=== PATIENT | female | born 1990 | race Two or more races ===

== ENCOUNTER 2017-10-18 09:21 | Emergency (ER) | payer OTHER, MEDICAID ==
[~2017-10-18] VITALS: Ht 154.9 cm; Wt 62.5 kg
[~2017-10-18 09:21] MED LIST: IBUP-1986 PO
[2017-10-18 09:39] VITALS: BP 122/74
[2017-10-18] MEDS ORDERED: ACET-3067 PO (11:00)
== END 2017-10-18 11:08 | disposition home or self-care (01) ==
LOC: ER 09:21
DX: M54.6 Pain in thoracic spine (principal); M25.511 Pain in right shoulder; G89.29 Other chronic pain; Z98.890 Other specified postprocedural states; Z91.040 Latex allergy status; V49.59XA Passenger injured in collision with other motor vehicles in traffic accident, initial encounter; Y93.89 Activity, other specified; Y92.413 State road as the place of occurrence of the external cause; Y99.9 Unspecified external cause status
CPT/HCPCS: 99283

== ENCOUNTER 2018-06-08 09:49 | Emergency (ER) | payer MEDICAID ==
[~2018-06-08] VITALS: Ht 154.9 cm; Wt 59.4 kg
[2018-06-08] MEDS ORDERED: ibuprofen tablet 400 MG TABLET PO ONE (11:00)
[2018-06-08] MEDS ORDERED: vancomycin/NS 1 GM ADD-VANTAGE 250 ML IV ONE (11:15)
[2018-06-08 11:34] LABS: BASOPHILS # (AUTO) 0.1 X10'3 (0-0.2); BASOPHILS % (AUTO) 0.6 % (0-1); EOSINOPHILS # (AUTO) 0.3 X10'3 (0-0.9); EOSINOPHILS % (AUTO) 2.4 % (0-6); HEMOGLOBIN 14.4 g/dl (12.0-16.0); LYMPHOCYTES # (AUTO) 1.8 X10'3 (1.1-4.8); MEAN CORPUSCULAR HEMOGLOBIN 31.6 PG (27.0-31.0); MEAN CORPUSCULAR HGB CONC 34.2 % (33.0-36.5); MEAN CORPUSCULAR VOLUME 92.6 FL (78-98); MEAN PLATELET VOLUME 7.7 FL (7.4-10.4); MONOCYTES # (AUTO) 0.7 X10'3 (0-0.9); MONOCYTES % (AUTO) 6.9 % (2-12); NEUTROPHILS # (AUTO) 7.8 X10'3 (1.8-7.7); NEUTROPHILS % (AUTO) 73.1 % (42-75); PLATELET COUNT 277 X10'3 (140-440); RED BLOOD COUNT 4.54 X10'6 (4.20-5.60); RED CELL DISTRIBUTION WIDTH 13.2 % (11.5-14.5); WHITE BLOOD COUNT 10.6 X10'3 (4.5-11.0)
[2018-06-08 11:43] LABS: ALANINE AMINOTRANSFERASE 48 U/L (12-78); ALBUMIN 3.6 G/DL (3.4-5.0); ALBUMIN/GLOBULIN RATIO 0.9 (1.1-1.5); ALKALINE PHOSPHATASE 96 IU/L (46-116); ANION GAP 9 (8-16); ASPARTATE AMINO TRANSFERASE 29 U/L (10-37); BILIRUBIN,TOTAL 0.3 MG/DL (0.1-1.0); BLOOD UREA NITROGEN 10 MG/DL (7-18); BUN/CREATININE RATIO 17.5 (6.6-38.0); CALCIUM 9.4 MG/DL (8.5-10.1); CHLORIDE 104 MMOL/L (99-107); CREATININE 0.57 MG/DL (0.40-0.90); GLUCOSE 89 MG/DL (70-104); POTASSIUM 3.9 MMOL/L (3.5-5.1); SODIUM 141 MMOL/L (135-145); TOTAL CARBON DIOXIDE 27.6 MMOL/L (24-32); TOTAL PROTEIN 7.5 G/DL (6.4-8.2); eGFR > 90 ML/MIN
[2018-06-08 11:45] LABS: PARTIAL THROMBOPLASTIN TIME 32 SECONDS (22-32); PROTHROMBIN TIME 10.6 SECONDS (9.0-12.0)
[2018-06-08] MEDS ORDERED: iohexol 300mg/ml 100ml inj. ONE (11:55)
[2018-06-08] MEDS ORDERED: normal saline 1000ML IV soln IVB ONE (13:00)
[2018-06-08 13:17] VITALS: BP 94/67
[2018-06-08 13:44] LABS: URINE HCG NEGATIVE (NEG)
[2018-06-08] MEDS ORDERED: LIDOcaine 1% w/EPI 1:100,000 30ml vial (MDV) IJ ONE (13:45)
[2018-06-08] MEDS ORDERED: LIDOcaine 1.5% w/epinephrine 1:200,000 5ml ampul IJ ONE (13:45)
[2018-06-08] MEDS ORDERED: SULF1TAB49 PO (13:46)
[2018-06-08] MEDS ORDERED: IBUP-1984 PO (13:46)
[2018-06-08] MEDS ORDERED: CEPH-572 PO (13:46)
[2018-06-08] MEDS ORDERED: LORazepam 2 mg/ml vial IV ONE (13:50)
[2018-06-08] MEDS ORDERED: HYDROcodone/acetaminophen 10/325mg tab PO ONE (13:50)
[2018-06-08 13:53] LABS: CLARITY,URINE CLEAR (Clear); COLOR,URINE YELLOW (Yellow); GLUCOSE, URINE NEGATIVE (Neg); KETONES,URINE NEGATIVE (Neg); LEUKOCYTE ESTERASE ,URINE NEGATIVE (Neg); NITRITES, URINE NEGATIVE (Neg); OCCULT BLOOD,URINE NEGATIVE (Neg); PROTEIN,URINE NEGATIVE (Neg); UROBILINOGEN,URINE 0.2 E.U/dL (0.2-1.0)
[2018-06-08 13:54] LABS: UA COLLECTION TYPE CLN CATCH MIDSTREAM
== END 2018-06-08 14:44 | disposition home or self-care (01) ==
LOC: ER 09:49 → EEVIPCON 09:49 → ER 14:44
DX: L02.413 Cutaneous abscess of right upper limb (principal); L03.113 Cellulitis of right upper limb; R00.0 Tachycardia, unspecified; Z91.040 Latex allergy status; Z98.890 Other specified postprocedural states
CPT/HCPCS: 10060; 36415; 73201; 80053; 81003; 81025; 83605; 85025; 85610; 85730; 87040; 96365; 96366; 96375; 99285; J2060; J3370; J3490; Q9967; J7030

== ENCOUNTER 2020-06-09 02:24 | Emergency (ER) | payer MEDICAID ==
[~2020-06-09] VITALS: Ht 154.9 cm; Wt 78.0 kg
[2020-06-09 02:30] VITALS: BP 135/57
--- NOTE | 2020-06-09 03:23 | NUR ---
Went to room patient, patient no longer in lobby,
--- NOTE | 2020-06-09 05:18 | NUR ---
attempted to call patient, voicemail box full.
== END 2020-06-09 05:20 | disposition left against medical advice (07) ==
LOC: ER 02:24
DX: M54.9 Dorsalgia, unspecified (principal); Z53.21 Procedure and treatment not carried out due to patient leaving prior to being seen by health care provider

== ENCOUNTER 2021-02-18 11:09 | Emergency (ER) | payer MEDICAID ==
[~2021-02-18] VITALS: Ht 154.9 cm; Wt 82.1 kg
[2021-02-18 11:28] VITALS: BP 145/84
[2021-02-18] MEDS ORDERED: piperacillin/tazo 3.375gm/50ml 50 ML IV ONE (13:40)
[2021-02-18] MEDS ORDERED: vancomycin/NS 1 GM ADD-VANTAGE 250 ML IV ONE (13:40)
[2021-02-18] MEDS ORDERED: normal saline 1000ML IV soln IV ONE (13:40)
--- NOTE | 2021-02-18 13:55 | NUR ---
attempt ekg on patient, refused. attempt xray, pt refused. at this time patient eloped from room.
--- NOTE | 2021-02-18 14:09 | NUR ---
At my arrival in room 16, pt elope. Pt was gone and refused tx. JEANETTE Small notified.
== END 2021-02-18 14:11 | disposition left against medical advice (07) ==
LOC: ER 11:09
DX: Z02.89 Encounter for other administrative examinations (principal); L02.413 Cutaneous abscess of right upper limb; M79.601 Pain in right arm; G89.29 Other chronic pain; F17.200 Nicotine dependence, unspecified, uncomplicated; F15.90 Other stimulant use, unspecified, uncomplicated; Z98.890 Other specified postprocedural states; Z91.040 Latex allergy status; Z79.899 Other long term (current) drug therapy
CPT/HCPCS: 99281

== ENCOUNTER 2021-09-23 00:47 | Emergency (ER) | payer MEDICAID ==
[~2021-09-23] VITALS: Ht 154.9 cm; Wt 75.0 kg
[2021-09-23 00:57] VITALS: BP 137/87
[2021-09-23] MEDS ORDERED: naproxen 500mg tablet PO ONE (04:35)
[2021-09-23] MEDS ORDERED: HYDROcodone/acetaminophen 10/325mg tab PO ONE (04:35)
[2021-09-23] MEDS ORDERED: NAPR-56 PO (04:37)
[2021-09-23] MEDS ORDERED: HYDR-3965 PO (04:37)
== END 2021-09-23 05:12 | disposition home or self-care (01) ==
LOC: ER 00:48
DX: S93.402A Sprain of unspecified ligament of left ankle, initial encounter (principal); G89.29 Other chronic pain; F15.90 Other stimulant use, unspecified, uncomplicated; Z98.891 History of uterine scar from previous surgery; Z91.040 Latex allergy status; Z79.899 Other long term (current) drug therapy; W18.42XA Slipping, tripping and stumbling without falling due to stepping into hole or opening, initial encounter; Y93.89 Activity, other specified; Y92.007 Garden or yard of unspecified non-institutional (private) residence as the place of occurrence of the external cause; Y99.8 Other external cause status
CPT/HCPCS: 29515; 73610; 99284

== ENCOUNTER 2021-10-12 12:09 | Emergency (ER) | payer MEDICAID ==
[~2021-10-12] VITALS: Ht 154.9 cm; Wt 79.5 kg
[~2021-10-12 12:09] MED LIST changes: +HYDR-3965 PO; +NAPR-56 PO
[2021-10-12 12:26] VITALS: BP 150/90
[2021-10-12] MEDS ORDERED: acetaminophen 325mg tablet PO ONE (12:35)
== END 2021-10-12 16:45 | disposition left against medical advice (07) ==
LOC: ER 12:10
DX: M79.602 Pain in left arm (principal); Z53.21 Procedure and treatment not carried out due to patient leaving prior to being seen by health care provider
CPT/HCPCS: 73080

== ENCOUNTER 2021-10-17 13:00 | Emergency (ER) | payer MEDICAID ==
[~2021-10-17] VITALS: Ht 154.9 cm; Wt 75.0 kg
[2021-10-17 13:02] VITALS: BP 153/89
--- NOTE | 2021-10-17 13:29 | NUR ---
Notified patient that family member with patient could not come back with patient if unvaccinated and no negative test. Patient did not want to be seen without visitor and walked out of ER lobby. Dr. Moncada aware.
[2021-10-18] MEDS ORDERED: NAPR-56 PO (03:52)
== END 2021-10-17 13:31 | disposition left against medical advice (07) ==
LOC: ER 13:01
DX: M79.602 Pain in left arm (principal); Z53.21 Procedure and treatment not carried out due to patient leaving prior to being seen by health care provider

== ENCOUNTER 2021-10-18 00:57 | Emergency (ER) | payer MEDICAID ==
[~2021-10-18] VITALS: Ht 154.9 cm; Wt 75.0 kg
--- NOTE | 2021-10-18 01:25 | NUR ---
Patient waiting in [facility], refusing to come back to a room until her boyfriend gets a COVID test because she "doesn't feel comfortable without her man by her side".
--- NOTE | 2021-10-18 02:15 | NUR ---
Patient back to a room from lobby s/p significant others negative covid test.
[2021-10-18 03:27] VITALS: BP 123/82
[2021-10-18] MEDS ORDERED: NAPR-56 PO (03:52)
[2021-10-18] MEDS ORDERED: HYDROcodone/acetaminophen 10/325mg tab PO ONE (03:55)
[2021-10-18] MEDS ORDERED: naproxen 500mg tablet PO ONE (03:55)
== END 2021-10-18 04:14 | disposition home or self-care (01) ==
LOC: ER 00:58
DX: M79.602 Pain in left arm (principal); R20.0 Anesthesia of skin; S50.02XD Contusion of left elbow, subsequent encounter; F15.90 Other stimulant use, unspecified, uncomplicated; G89.29 Other chronic pain; Z98.891 History of uterine scar from previous surgery; Z91.040 Latex allergy status; Z79.899 Other long term (current) drug therapy; X58.XXXD Exposure to other specified factors, subsequent encounter; V69.9XXD Occupant (driver) (passenger) of heavy transport vehicle injured in unspecified traffic accident, subsequent encounter
CPT/HCPCS: 73080; 99283

== ENCOUNTER 2021-12-11 05:07 | Emergency (ER) | payer MEDICAID, OTHER ==
[~2021-12-11] VITALS: Ht 154.9 cm; Wt 90.9 kg
[~2021-12-11 05:07] MED LIST changes: -HYDR-3965 PO; -NAPR-56 PO
[2021-12-11] MEDS ORDERED: diazepam 5mg tablet PO ONE (05:30)
[2021-12-11] MEDS ORDERED: levetiracetam 250mg tablet PO ONE (05:30)
[2021-12-11] MEDS ORDERED: carBAMazepine 100mg chewable tablet PO ONE (05:30)
[2021-12-11 05:47] LABS: BASOPHILS # (AUTO) 0.1 X10'3 (0-0.2); BASOPHILS % (AUTO) 0.6 % (0-1); EOSINOPHILS # (AUTO) 0.4 X10'3 (0-0.9); EOSINOPHILS % (AUTO) 3.7 % (0-6); HEMATOCRIT 45.2 % (35.0-45.0); HEMOGLOBIN 15.6 g/dl (12.0-16.0); LYMPHOCYTES # (AUTO) 2.2 X10'3 (1.1-4.8); LYMPHOCYTES % (AUTO) 21.7 % (21-51); MEAN CORPUSCULAR HEMOGLOBIN 32.3 PG (27.0-31.0); MEAN CORPUSCULAR HGB CONC 34.5 g/dL (33.0-36.5); MEAN CORPUSCULAR VOLUME 93.9 FL (78-98); MEAN PLATELET VOLUME 7.7 FL (7.4-10.4); MONOCYTES # (AUTO) 0.8 X10'3 (0-0.9); MONOCYTES % (AUTO) 7.9 % (2-12); NEUTROPHILS # (AUTO) 6.6 X10'3 (1.8-7.7); NEUTROPHILS % (AUTO) 66.1 % (42-75); PLATELET COUNT 299 X10'3 (140-440); RED BLOOD COUNT 4.82 X10'6 (4.20-5.60); RED CELL DISTRIBUTION WIDTH 12.9 % (11.5-14.5)
[2021-12-11 06:01] LABS: ALANINE AMINOTRANSFERASE 27 U/L (12-78); ALBUMIN/GLOBULIN RATIO 1.2 (1.1-1.5); ALKALINE PHOSPHATASE 105 IU/L (46-116); ANION GAP 8 (8-16); ASPARTATE AMINO TRANSFERASE 25 U/L (10-37); BILIRUBIN,TOTAL 0.4 MG/DL (0.1-1.0); BLOOD UREA NITROGEN 16 MG/DL (7-18); BUN/CREATININE RATIO 20.3 (6.6-38.0); CALCIUM 8.7 MG/DL (8.5-10.1); CHLORIDE 106 MMOL/L (99-107); CREATININE 0.79 MG/DL (0.40-0.90); GLUCOSE 89 MG/DL (70-104); POTASSIUM 4.1 MMOL/L (3.5-5.1); SODIUM 140 MMOL/L (135-145); TOTAL CARBON DIOXIDE 26.3 MMOL/L (24-32); TOTAL PROTEIN 7.4 G/DL (6.4-8.2); eGFR 85 ML/MIN
[2021-12-11 06:06] LABS: CREATINE KINASE 123 U/L (26-192); ETHANOL < 0.010 GM/DL (0.0-0.010)
[2021-12-11 06:29] VITALS: BP 137/78
[2021-12-11 07:02] LABS: VALPROATE < 3.0 UG/ML (50-100)
== END 2021-12-11 06:35 ==
LOC: EEVIPCON 05:08 → ER 05:08
DX: Z13.89 Encounter for screening for other disorder (principal); R56.9 Unspecified convulsions; G89.29 Other chronic pain; F15.90 Other stimulant use, unspecified, uncomplicated; Z86.69 Personal history of other diseases of the nervous system and sense organs; Z98.890 Other specified postprocedural states; Z91.040 Latex allergy status; Z79.899 Other long term (current) drug therapy
CPT/HCPCS: 36415; 80053; 80164; 80320; 82550; 83874; 85025; 99284

== ENCOUNTER 2022-02-28 15:07 | Emergency (ER) | payer MEDICAID, OTHER ==
[~2022-02-28] VITALS: Ht 154.9 cm; Wt 78.6 kg
[2022-02-28 15:11] VITALS: BP 130/78
[2022-02-28] MEDS ORDERED: normal saline 1000ML IV soln IVB ONE (16:20)
[2022-02-28] MEDS ORDERED: ALBU8HFA PO (17:15)
[2022-02-28] MEDS ORDERED: NIRM1TAB PO (17:15)
== END 2022-02-28 18:12 | disposition home or self-care (01) ==
LOC: ER 15:07
DX: U07.1 COVID-19 (principal); G89.29 Other chronic pain; M54.50 Low back pain, unspecified; F15.20 Other stimulant dependence, uncomplicated; Z91.040 Latex allergy status
CPT/HCPCS: 71045; 87635; 96360; 99284; C9803; J7030

== ENCOUNTER 2022-07-03 21:55 | Emergency (ER) | payer MEDICAID ==
[~2022-07-03] VITALS: Ht 154.9 cm; Wt 165.0 kg
[~2022-07-03 21:55] MED LIST changes: +NIRM1TAB PO
[2022-07-03 22:40] VITALS: BP 158/74
== END 2022-07-04 03:40 | disposition left against medical advice (07) ==
LOC: ER 21:56
DX: R56.9 Unspecified convulsions (principal); Z53.21 Procedure and treatment not carried out due to patient leaving prior to being seen by health care provider

== ENCOUNTER 2023-01-18 17:22 | Emergency (ER) | payer MEDICAID ==
[~2023-01-18] VITALS: Ht 154.9 cm; Wt 67.2 kg
[2023-01-18 17:29] VITALS: BP 134/85
[2023-01-18 18:19] LABS: BASOPHILS # (AUTO) 0.1 X10'3 (0-0.2); BASOPHILS % (AUTO) 0.6 % (0-1); EOSINOPHILS # (AUTO) 0.1 X10'3 (0-0.9); HEMATOCRIT 46.1 % (35.0-45.0); HEMOGLOBIN 15.7 g/dl (12.0-16.0); LYMPHOCYTES # (AUTO) 2.4 X10'3 (1.1-4.8); LYMPHOCYTES % (AUTO) 24.9 % (21-51); MEAN CORPUSCULAR HEMOGLOBIN 32.6 PG (27.0-31.0); MEAN CORPUSCULAR VOLUME 95.8 FL (78-98); MEAN PLATELET VOLUME 6.6 FL (7.4-10.4); MONOCYTES # (AUTO) 0.3 X10'3 (0-0.9); MONOCYTES % (AUTO) 3.1 % (2-12); NEUTROPHILS # (AUTO) 6.8 X10'3 (1.8-7.7); NEUTROPHILS % (AUTO) 70.4 % (42-75); PLATELET COUNT 486 X10'3 (140-440); RED BLOOD COUNT 4.82 X10'6 (4.20-5.60); RED CELL DISTRIBUTION WIDTH 12.4 % (11.5-14.5); WHITE BLOOD COUNT 9.6 X10'3 (4.5-11.0)
[2023-01-18 18:34] LABS: ALANINE AMINOTRANSFERASE 29 U/L (12-78); ALBUMIN 3.7 G/DL (3.4-5.0); ALBUMIN/GLOBULIN RATIO 0.9 (1.1-1.5); ALKALINE PHOSPHATASE 118 IU/L (46-116); ANION GAP 15 (8-16); ASPARTATE AMINO TRANSFERASE 19 U/L (10-37); BILIRUBIN,TOTAL 0.2 MG/DL (0.1-1.0); BLOOD UREA NITROGEN 15 MG/DL (7-18); BUN/CREATININE RATIO 13.2 (10.0-20.0); CALCIUM 9.3 MG/DL (8.5-10.1); CHLORIDE 106 MMOL/L (99-107); CREATININE 1.14 MG/DL (0.40-0.90); GLUCOSE 106 MG/DL (70-104); POTASSIUM 3.3 MMOL/L (3.5-5.1); SODIUM 145 MMOL/L (135-145); TOTAL CARBON DIOXIDE 24.1 MMOL/L (24-32); TOTAL PROTEIN 7.7 G/DL (6.4-8.2); eGFR 55 ML/MIN
[2023-01-19] MEDS ORDERED: HYDROcodone/acetaminophen 5mg/325mg tablet PO ONE
[2023-01-19] MEDS ORDERED: CEPH-585 PO (04:06)
[2023-01-19] MEDS ORDERED: FLO0.4C PO (04:06)
== END 2023-01-19 04:21 | disposition home or self-care (01) ==
LOC: ER 17:23
DX: N20.0 Calculus of kidney (principal); N39.0 Urinary tract infection, site not specified; F17.200 Nicotine dependence, unspecified, uncomplicated; F12.90 Cannabis use, unspecified, uncomplicated; F15.20 Other stimulant dependence, uncomplicated; Z91.040 Latex allergy status; Z98.890 Other specified postprocedural states
CPT/HCPCS: 36415; 74176; 80053; 85025; 99284

== ENCOUNTER 2023-02-01 18:34 | Emergency (ER) | payer MEDICAID ==
[~2023-02-01] VITALS: Ht 154.9 cm; Wt 65.9 kg
[~2023-02-01 18:34] MED LIST changes: +CEPH-585 PO
[2023-02-01 20:43] LABS: BASOPHILS # (AUTO) 0.1 X10'3 (0-0.2); BASOPHILS % (AUTO) 0.4 % (0-1); EOSINOPHILS # (AUTO) 0.2 X10'3 (0-0.9); EOSINOPHILS % (AUTO) 1.7 % (0-6); HEMATOCRIT 47.4 % (35.0-45.0); HEMOGLOBIN 16.7 g/dl (12.0-16.0); LYMPHOCYTES # (AUTO) 3.7 X10'3 (1.1-4.8); LYMPHOCYTES % (AUTO) 28.2 % (21-51); MEAN CORPUSCULAR HEMOGLOBIN 32.8 PG (27.0-31.0); MEAN CORPUSCULAR HGB CONC 35.1 g/dL (33.0-36.5); MEAN CORPUSCULAR VOLUME 93.3 FL (78-98); MONOCYTES # (AUTO) 1.5 X10'3 (0-0.9); MONOCYTES % (AUTO) 11.1 % (2-12); NEUTROPHILS # (AUTO) 7.7 X10'3 (1.8-7.7); NEUTROPHILS % (AUTO) 58.6 % (42-75); PLATELET COUNT 349 X10'3 (140-440); RED BLOOD COUNT 5.08 X10'6 (4.20-5.60); RED CELL DISTRIBUTION WIDTH 12.9 % (11.5-14.5); WHITE BLOOD COUNT 13.2 X10'3 (4.5-11.0)
[2023-02-01 20:44] LABS: ALANINE AMINOTRANSFERASE 28 U/L (12-78); ALBUMIN 4.3 G/DL (3.4-5.0); ALBUMIN/GLOBULIN RATIO 1.2 (1.1-1.5); ALKALINE PHOSPHATASE 121 IU/L (46-116); ANION GAP 9 (8-16); ASPARTATE AMINO TRANSFERASE 28 U/L (10-37); BILIRUBIN,TOTAL 0.3 MG/DL (0.1-1.0); BLOOD UREA NITROGEN 29 MG/DL (7-18); BUN/CREATININE RATIO 20.9 (10.0-20.0); CALCIUM 9.5 MG/DL (8.5-10.1); CHLORIDE 102 MMOL/L (99-107); CREATININE 1.39 MG/DL (0.40-0.90); GLUCOSE 103 MG/DL (70-104); POTASSIUM 3.9 MMOL/L (3.5-5.1); SODIUM 139 MMOL/L (135-145); TOTAL CARBON DIOXIDE 27.9 MMOL/L (24-32); TOTAL PROTEIN 7.9 G/DL (6.4-8.2); eGFR 44 ML/MIN
[2023-02-01 20:48] LABS: ETHANOL < 0.010 GM/DL (0.0-0.010)
[2023-02-01] MEDS ORDERED: carBAMazepine 100mg chewable tablet PO ONE (22:25)
[2023-02-01] MEDS ORDERED: levetiracetam inj 1,000 MG in normal saline 100ml IV soln 90 ML IV ONE (22:25)
[2023-02-01] MEDS ORDERED: levetiracetam inj 1,000 MG in normal saline 100ml IV soln 100 ML IV ONE (22:29)
[2023-02-01 22:58] LABS: CARBAMAZEPINE (TEGRETOL) < 0.5 UG/ML (4.0-12.0)
[2023-02-01 23:05] LABS: BASOPHILS # (AUTO) 0.1 X10'3 (0-0.2); BASOPHILS % (AUTO) 0.6 % (0-1); EOSINOPHILS # (AUTO) 0.2 X10'3 (0-0.9); EOSINOPHILS % (AUTO) 2.2 % (0-6); HEMATOCRIT 45.9 % (35.0-45.0); HEMOGLOBIN 16.1 g/dl (12.0-16.0); LYMPHOCYTES # (AUTO) 3.5 X10'3 (1.1-4.8); MEAN CORPUSCULAR HEMOGLOBIN 32.4 PG (27.0-31.0); MEAN CORPUSCULAR HGB CONC 35.1 g/dL (33.0-36.5); MEAN CORPUSCULAR VOLUME 92.2 FL (78-98); MEAN PLATELET VOLUME 7.7 FL (7.4-10.4); MONOCYTES % (AUTO) 9.4 % (2-12); NEUTROPHILS # (AUTO) 5.8 X10'3 (1.8-7.7); NEUTROPHILS % (AUTO) 54.8 % (42-75); PLATELET COUNT 310 X10'3 (140-440); RED BLOOD COUNT 4.98 X10'6 (4.20-5.60); WHITE BLOOD COUNT 10.7 X10'3 (4.5-11.0)
[2023-02-01] MEDS ORDERED: acetaminophen 325mg tablet PO ONE (23:50)
[2023-02-01] MEDS ORDERED: CARB200T PO (23:57)
[2023-02-01] MEDS ORDERED: LEVE500T12 PO (23:57)
[2023-02-02 00:19] LABS: URINE HCG NEGATIVE (NEG)
[2023-02-02 00:32] LABS: URINE AMPHETAMINE SCREEN POSITIVE (Neg); URINE BARBITUATE SCREEN NEGATIVE (Neg); URINE BENZODIAZEPINES SCREEN POSITIVE (Neg); URINE CANNABINOID SCREEN POSITIVE (Neg); URINE COCAINE SCREEN NEGATIVE (Neg); URINE METHADONE SCREEN NEGATIVE (Neg); URINE OPIATE SCREEN NEGATIVE (Neg); URINE PHENCYCLIDINE SCREEN NEGATIVE (Neg)
[2023-02-02 01:30] VITALS: BP 120/85
== END 2023-02-02 03:35 | disposition home or self-care (01) ==
LOC: ER 18:35
DX: R56.9 Unspecified convulsions (principal); R07.81 Pleurodynia; G89.29 Other chronic pain; F12.90 Cannabis use, unspecified, uncomplicated; F15.90 Other stimulant use, unspecified, uncomplicated; F10.10 Alcohol abuse, uncomplicated; Z98.890 Other specified postprocedural states; Z88.0 Allergy status to penicillin; Z91.040 Latex allergy status; Z79.899 Other long term (current) drug therapy; Y90.9 Presence of alcohol in blood, level not specified
CPT/HCPCS: 36415; 71045; 80053; 80156; 80177; 80305; 80320; 81025; 85025; 96365; 99285; J1953; J3490

== ENCOUNTER 2023-04-09 19:48 | Emergency (ER) | payer MEDICAID, OTHER ==
[~2023-04-09] VITALS: Ht 154.9 cm; Wt 62.7 kg
[~2023-04-09 19:48] MED LIST changes: +CARB200T PO; +LEVE500T12 PO
[2023-04-09 19:57] VITALS: BP 111/87; PULSE 93; RESP 16; TEMP 98; O2SAT 98
== END 2023-04-09 20:25 ==
LOC: ER 19:49 → EEVIPCON 19:49 → ER 20:25
DX: T19.2XXA Foreign body in vulva and vagina, initial encounter (principal); F12.90 Cannabis use, unspecified, uncomplicated; F15.90 Other stimulant use, unspecified, uncomplicated; Z88.0 Allergy status to penicillin; Z91.040 Latex allergy status; Z79.1 Long term (current) use of non-steroidal anti-inflammatories (NSAID); Z79.2 Long term (current) use of antibiotics
CPT/HCPCS: 99284

== ENCOUNTER 2023-06-23 12:33 | Emergency (ER) | payer SELFPAY ==
[~2023-06-23] VITALS: Ht 154.9 cm; Wt 72.0 kg
[2023-06-23 12:52] VITALS: BP 149/86; PULSE 94; RESP 16; TEMP 97.8; O2SAT 98
[2023-06-23 13:37] LABS: BASOPHILS % (AUTO) 0.7 % (0-1); EOSINOPHILS # (AUTO) 0.1 X10'3 (0-0.9); EOSINOPHILS % (AUTO) 1.3 % (0-6); HEMATOCRIT 42.6 % (35.0-45.0); HEMOGLOBIN 14.8 g/dl (12.0-16.0); LYMPHOCYTES % (AUTO) 34.9 % (21-51); MEAN CORPUSCULAR HEMOGLOBIN 32.3 PG (27.0-31.0); MEAN CORPUSCULAR HGB CONC 34.7 g/dL (33.0-36.5); MEAN PLATELET VOLUME 7.6 FL (7.4-10.4); MONOCYTES # (AUTO) 0.4 X10'3 (0-0.9); MONOCYTES % (AUTO) 6.2 % (2-12); NEUTROPHILS # (AUTO) 3.3 X10'3 (1.8-7.7); NEUTROPHILS % (AUTO) 56.9 % (42-75); PLATELET COUNT 230 X10'3 (140-440); RED BLOOD COUNT 4.58 X10'6 (4.20-5.60); RED CELL DISTRIBUTION WIDTH 12.9 % (11.5-14.5); WHITE BLOOD COUNT 5.8 X10'3 (4.5-11.0)
[2023-06-23 13:38] LABS: URINE HCG NEGATIVE (NEG)
[2023-06-23 13:49] LABS: BILIRUBIN,URINE SMALL (Neg); CLARITY,URINE CLOUDY (Clear); COLOR,URINE YELLOW (Yellow); GLUCOSE, URINE NEGATIVE (Neg); KETONES,URINE TRACE mg/dl (Neg); LEUKOCYTE ESTERASE ,URINE NEGATIVE (Neg); NITRITES, URINE NEGATIVE (Neg); OCCULT BLOOD,URINE NEGATIVE (Neg); PH,URINE 6.5 (4.8-8.0); PROTEIN,URINE TRACE mg/dl (Neg); UA COLLECTION TYPE CLN CATCH MIDSTREAM
[2023-06-23 13:50] LABS: ALANINE AMINOTRANSFERASE 21 U/L (12-78); ALBUMIN 4.1 G/DL (3.4-5.0); ALBUMIN/GLOBULIN RATIO 1.5 (1.1-1.5); ALKALINE PHOSPHATASE 73 IU/L (46-116); ANION GAP 6 (8-16); ASPARTATE AMINO TRANSFERASE 22 U/L (10-37); BILIRUBIN,TOTAL 0.3 MG/DL (0.1-1.0); BLOOD UREA NITROGEN 16 MG/DL (7-18); BUN/CREATININE RATIO 21.6 (10.0-20.0); CALCIUM 8.8 MG/DL (8.5-10.1); CHLORIDE 107 MMOL/L (99-107); CREATININE 0.74 MG/DL (0.40-0.90); GLUCOSE 132 MG/DL (70-104); POTASSIUM 3.2 MMOL/L (3.5-5.1); SODIUM 140 MMOL/L (135-145); TOTAL CARBON DIOXIDE 26.6 MMOL/L (24-32); TOTAL PROTEIN 6.9 G/DL (6.4-8.2); eCRCL 82 ML/MIN; eGFR 90 ML/MIN
[2023-06-23 14:06] LABS: MUCUS STRANDS MODERATE /LPF (Neg); SQUAMOUS EPITHELIAL CELL,UR MANY /LPF (FEW)
[2023-06-23 14:07] LABS: BACTERIA,URINE FEW /HPF (Neg); CAL OXALATE CRYSTALS 2+ /HPF (NEGATIVE); RBC,URINE 0-2 /HPF (0-2); WBC,URINE 0-4 /HPF (0-4)
[2023-06-23 14:29] LABS: URINE AMPHETAMINE SCREEN POSITIVE (Neg); URINE BARBITUATE SCREEN NEGATIVE (Neg); URINE BENZODIAZEPINES SCREEN POSITIVE (Neg); URINE CANNABINOID SCREEN POSITIVE (Neg); URINE COCAINE SCREEN NEGATIVE (Neg); URINE METHADONE SCREEN NEGATIVE (Neg); URINE OPIATE SCREEN NEGATIVE (Neg); URINE PHENCYCLIDINE SCREEN NEGATIVE (Neg)
== END 2023-06-23 16:49 | disposition left against medical advice (07) ==
LOC: ER 12:33
DX: F41.9 Anxiety disorder, unspecified (principal); F32.A Depression, unspecified; F12.10 Cannabis abuse, uncomplicated; F15.10 Other stimulant abuse, uncomplicated; G89.29 Other chronic pain; M54.9 Dorsalgia, unspecified; Z88.0 Allergy status to penicillin; Z91.040 Latex allergy status; Z79.899 Other long term (current) drug therapy
CPT/HCPCS: 36415; 80053; 80305; 81001; 81025; 85025; 99283

== ENCOUNTER 2024-01-21 09:45 | Emergency (ER) | payer SELFPAY ==
[~2024-01-21 09:45] MED LIST changes: -CEPH-585 PO
== END 2024-01-21 09:59 | disposition left against medical advice (07) ==
LOC: ER 09:45
DX: R56.9 Unspecified convulsions (principal); Z53.21 Procedure and treatment not carried out due to patient leaving prior to being seen by health care provider